=== PATIENT | female | born 1995 | race African-American/Black ===

== ENCOUNTER 2016-06-25 17:35 | Inpatient (IN) ==
[2016-06-25] MEDS ORDERED: ONDANSETRON 4 MG/2 ML VIAL IV PRN (18:04)
[2016-06-25] MEDS ORDERED: MEPERIDINE 50 MG/1 ML VIAL IV PRN (18:04)
[2016-06-25 18:26] LABS: Basophils % 0.1 % (0.0-0.8); Eosinophils % 0.2 % (0.00-10.9); Hematocrit 26.1 VOL% (35.7-47.0); Hemoglobin 8.6 GM/DL (12.0-16.0); Immature Granulocytes % 0.4 %; Immature Granulocytes Absolute 0.04 #; Lymphocytes # 1.3 10*3/uL (1.4-4.0); Lymphocytes % 11.8 % (21.3-54.2); Mean Corpuscular Hemoglobin 26 PG (27-34); Mean Corpuscular Volume 79.6 FL (87-102); Mean Platelet Volume 9.3 FL (9.6-12.0); Monocytes # 0.7 10*3/uL (0.11-0.8); Monocytes % 6.3 % (1.7-12.7); Neutrophils # 9.1 10*3/uL (1.4-7.4); Neutrophils % 81.2 % (38.7-73.9); Platelet Count 247 10*3/uL (130-400); Red Blood Count 3.28 10*6/uL (3.8-5.5); Red Cell Distribution Width 13.7 % (9.3-17.3); White Blood Count 11.2 10*3/uL (4.5-13.71)
[2016-06-25 18:52] LABS: Alanine Aminotransferase < 9 U/L (13-56); Alkaline Phosphatase 143 U/L (45-117); Aspartate Amino Transferase 13 U/L (0-37); Blood Urea Nitrogen 4 MG/DL (7-18); Calcium 8.8 MG/DL (8.5-10.1); Glucose 83 MG/DL (74-106); Osmolality,Calculated 276.3 MOS/KG (273-304); Potassium 3.6 MMOL/L (3.5-5.1); Sodium 141 MMOL/L (136-145); Total Protein 7.6 G/DL (6.4-8.3)
[2016-06-26] MEDS: BUTORPHANOL 2 MG/ML VIAL IV PRN ×2 (01:13→08:55)
[2016-06-26] MEDS: LACTATED RINGERS 1,000 ML IV SCH ×2 (01:13→08:57)
[2016-06-26] MEDS ORDERED: OXYTOCIN/LR 20 UNIT/1,000 ML BAG IV SCH (07:30)
[2016-06-26] MEDS ORDERED: fentaNYL 2 MCG/ROPIV 0.2% EPID 150 ML EPIDURAL SCH (12:39)
[2016-06-26] MEDS ORDERED: hydrOXYzine HCL 25 MG/1 ML VIAL IM PRN (12:39)
[2016-06-26] MEDS ORDERED: diphenhydrAMINE 50 MG/1 ML VIAL IV PRN ×2 (12:39)
[2016-06-26] MEDS ORDERED: ePHEDrine 50 MG/ML AMP IV PRN (12:39)
[2016-06-26] MEDS ORDERED: PROMETHAZINE 25 MG/1 ML VIAL IM ONE (12:39)
[2016-06-26] MEDS ORDERED: FAMOTIDINE 20 MG/2 ML VIAL IV ONE (12:39)
[2016-06-26] MEDS ORDERED: CITRIC ACID/SODIUM CITRATE 30 ML UDCUP PO ONE (12:39)
[2016-06-26] MEDS ORDERED: ONDANSETRON 4 MG/2 ML VIAL IV ONE (12:39)
--- NOTE | 2016-06-26 12:58 | OB/GYN History & Physical ---
History of Present Illness Chief complaint: Patient scheduled for induction of labor @ 39.1 weeks per patient request History of present illness: Ms. Rivera is a 20 year old female primigravida with an EDC 07/01/2016 per last menstrual period and consistent with a 9-5/7 week ultrasound she was steadily 9.1 weeks upon admission yesterday. She receives care [facility] with Ava Pabon CNM, ANTONINA-. Her history of physical is available. In up-to-date. Records are available and reviewed. Home Medications Medication Instructions Recorded Confirmed Type Vit No.124/Iron/FA 1 each PO DAILY MDD one tab 06/25/16 06/25/16 History [ Vitamin Tablet] Allergies Allergy/AdvReac Type Severity Reaction Status Date / Time No Known Allergies Allergy Verified 06/25/16 18:03 ROS unobtainable: due to endotracheal tube Medical,Surgical,& Family Hx - Medical History Medical History: noncontributory Other: History of: Miscellaneous Medical Problems (H/O Chlamydia ) - Surgical History Surgical History: noncontributory Neurologic Surgeries: Patient denies: Neurologic Surgery Reproductive Surgeries: Patient denies;: Genitourinary Surgery, Gynecologic Surgery - Family History Family History: noncontributory Family History: Denies;: Family Anesthesia Reaction, Family Cancer, Family Diabetes, Family Heart Disease, Family Hematology, Family Hypertension, Family Psychiatric Problems, Family Stroke, Additional Family History - Social History Smoking Status: Never smoker Frequency of Alcohol Use: None Type of Drug Use: None Marital Status: Single Lives With:: Parent Functional capacity: independent ambulation 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 - Constitutional Vitals: Vital Signs Temp Pulse Resp BP 06/26/16 04:00 97.5 F L 77 17 119/79 06/26/16 00:00 99.1 F 93 H 18 127/82 06/25/16 20:00 98.9 F 80 17 121/77 General appearance: normal weight - Antepartum / Post Antpartum Exam Cervix -Dilatation: 1cm Effacement: 50% Station: 0 Rupture: Intact Presentation: Vertex Heart Rate: 150s Manns Choice: Occassional/30-40 seconds/mild Breast: bilateral: normal Abdomen obstetrics: Present: bowel sounds normal Cervix: Present: normal Uterus exam: Present: enlarged (Gravid, soft) Anus/Rectum: Present: normal perianal skin - Head Head exam: Present: normal inspection - Respiratory Respiratory exam: Present: clear to auscultation bilaterally - Cardiovascular Cardiovascular exam: Present: regular rate and rhythm - GI/Abdominal GI/Abdominal exam: Present: normal bowel sounds - Extremities Exam Extremities exam: Present: normal inspection, normal capillary refill, full ROM - Back Exam Back exam: Present: normal inspection - Neurological Exam Neurological exam: Present: alert, oriented X3, normal gait - Psychiatric Psychiatric exam: Present: normal affect, normal mood - Skin Skin exam: Present: normal color, warm, dry Assessment and Plan (1) Elective induction of labor planned Status: Acute Current Visit: Yes Results - Labs CBC & BMP: 06/25/16 18:13 06/25/16 18:13
--- NOTE | 2016-06-26 13:06 | OB/GYN Progress Note ---
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 Requests pain medications O: FHTs @ 120s with spontaneous variability. No decelerations noted SVE 2 cm/ 80%/ 0 station UCs every min/ 40-50 sec/ mod AROM with amniohook- clear fluid noted IUPC inserted easily without difficulty with clear fluid noted A: IUP @ 39.2 wks, Category I FHR tracing, AROM clear fluid noted, IUPC inserted, Pitocin induction P: Continue with pitocin induction of labor, reposition for comfort. Questions answered to desired level of satisfaction. Prepare for epidural if desired. Exam HYBRID TESTER - Constitutional Vitals: Vital Signs Temp Pulse Resp BP 06/26/16 04:00 97.5 F L 77 17 119/79 06/26/16 00:00 99.1 F 93 H 18 127/82 06/25/16 20:00 98.9 F 80 17 121/77 Results - Labs CBC & BMP: 06/25/16 18:13 06/25/16 18:13 Labs: Laboratory Tests 06/25/16 06/25/16 06/25/16 18:13 18:13 18:13 WBC 11.2 RBC 3.28 L Hgb 8.6 L Hct 26.1 L MCV 79.6 L MCH 26 L MCHC 33.0 RDW 13.7 Plt Count 247 MPV 9.3 L Neut % (Auto) 81.2 H Lymph % (Auto) 11.8 L [place] % (Auto) 6.3 Eos % (Auto) 0.2 Baso % (Auto) 0.1 Neut # (Auto) 9.1 H Lymph # (Auto) 1.3 L [place] # (Auto) 0.7 Eos # (Auto) 0.0 Baso # (Auto) 0.0 Immature Gran % 0.4 Nucleated RBC % 0.0 Immature Gran # 0.04 Nucleated RBCs # 0.00 Sodium 141 Potassium 3.6 Chloride 106 Carbon Dioxide 24 Anion Gap 14.6 BUN 4 L Creatinine 0.80 GFR Calculation 134 BUN/Creatinine Ratio 5.00 L Glucose 83 Calculated Osmolality 276.3 Calcium 8.8 Total Bilirubin 0.60 AST 13 ALT < 9 L Alkaline Phosphatase 143 H Total Protein 7.6 Albumin 3.0 L Globulin 4.6 H Albumin/Globulin Ratio 0.6 L Blood Type A POSITIVE Antibody Screen Negative
--- NOTE | 2016-06-26 13:14 | OB/GYN Progress Note ---
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 I want an epidural!" O: FHTs @ 120s with spontaneous accelerations no decelerations noted UCs Every 1-2 min/ 40-50 sec/ 50-55 mmHg with resting tone @ 20-25 mmHg SVE 5-6/ 90%/ 0 station A: IUP @ 39.2 wks, Active Labor, Category I FHR tracing, Anemia P: Prepare for epidural. Reposition for comfort. 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
[2016-06-26] MEDS ORDERED: LIDOCAINE 1% 50 ML VIAL ONE (13:56)
[2016-06-26] MEDS ORDERED: METHYLERGONOVINE 0.2 MG/1 ML AMP ONE (14:12)
[2016-06-26] MEDS ORDERED: miSOPROStol 200 MCG TABLET ONE (14:26)
--- NOTE | 2016-06-26 14:51 | Operative Note ---
Date of procedure: 06/26/16 Pre-op diagnosis: IUP @ 39.1 wks, Induction of labor at term Post-op diagnosis: other (, Mild Post Hemorrhage) Procedure: Received in dorsal lithotomy position, draped and prepped. At 1356, spontaneous delivery of head in VIOLETTE position with midline episiotomy. Anterior then posterior shoulder delivered easily without difficulty. Female placed on mother's abdomen. Mouth and nose bulb suctioned with clear secretions noted. Cord doubly clamped and allowed to be cut by father of baby. Female attended per nursery nurse. At 1358, spontaneous delivery of placenta via Jo with 3 vessel cord noted, normal cord insertion, mild calcifications present. Hemostasis maintained with fundal massage and Pitocin 20 units in 1000cc of LR. Perineum inspected- bilateral lateral lacerations, periurethral lacerations, and midline episiotomy noted. Periurethral laceration repaired with Lidocaine 1% plain and 3-0 Chromic. Right labial and Midline episiotomy infiltrated with Lidocaine 1% plain and repaired with 3-0 Chromic suture. Slow continuous vaginal bleeding noted- Bleeding decreased with with uterine sweep and removal of clots. In and out cath performed- 250 cc of clear yellow urine noted. Bimanual compression massage performed. Methergine 0.2 mg given SQ and Cytotec 800 mcg given rectally. Bleeding improved. Cervix inspected- no lacerations or bleeding noted. Female with Apgars 8,9 and mother stable at this time. Mother is presently . Mild hemorrhage noted and controlled. Anesthesia: local, epidural Surgeon / Physician: Ava Pabon Estimated blood loss: other (300 cc) Specimens: other (placenta to pathology- mild hemorrhage) Condition: stable Disposition: floor Results - Labs CBC & BMP: 06/25/16 18:13 06/25/16 18:13 Discharge Plan - Discharge Medications No Action Vit No.124/Iron/FA [ Vitamin Tablet] 1 each PO DAILY MDD one tab - Follow Up or Referral - Forms/Instructions
[2016-06-26] MEDS ORDERED: WITCH HAZEL PADS 100/JAR TOP PRN (14:52)
[2016-06-26] MEDS ORDERED: BENZOCAINE 20%/MENTHOL 0.5% SPRAY 56 GM CAN TOP PRN (14:52)
[2016-06-26] MEDS ORDERED: BISACODYL 10 MG SUPP RECTAL PRN (14:52)
[2016-06-26] MEDS ORDERED: MEASLES/MUMPS/RUBELLA VACCINE 0.5 ML VIAL SUBCUT ONE (14:52)
[2016-06-26] MEDS ORDERED: RHO(D) IMMUNE GLOBULIN 300 MCG SYRINGE IM ONE (14:52)
[2016-06-26] MEDS ORDERED: IBUPROFEN 800 MG TABLET PO PRN (14:52)
[2016-06-26] MEDS ORDERED: HYDROCORTISONE 2.5% RECTAL CREAM 30 GM TUBE TOP PRN (14:52)
[2016-06-26] MEDS ORDERED: oxyCODONE/ACETAMINOPHEN 5-325 MG TABLET PO PRN ×2 (14:52)
[2016-06-26] MEDS ORDERED: LANOLIN 50% CREAM 0.3 OZ TUBE TOP PRN (14:52)
[2016-06-26] MEDS ORDERED: OXYTOCIN/LR 20 UNIT/1,000 ML BAG IV ONE (14:52)
[2016-06-26] MEDS ORDERED: ACETAMINOPHEN 325 MG TABLET PO PRN (14:52)
[2016-06-26] MEDS ORDERED: DIPH/TET/ACEL PERT BOOSTER VACCINE 0.5 ML VIAL IM ONE (14:52)
[2016-06-26 20:11] LABS: Hematocrit 24.1 VOL% (35.7-47.0)
[2016-06-26] MEDS: FERROUS SULFATE 325 MG TABLET PO SCH (21:39)
[2016-06-26] MEDS: DOCUSATE SODIUM 100 MG CAPSULE PO SCH (21:40)
[2016-06-27 05:39] LABS: Basophils % 0.1 % (0.0-0.8); Eosinophils % 0.1 % (0.00-10.9); Hemoglobin 7.1 GM/DL (12.0-16.0); Immature Granulocytes % 0.5 %; Immature Granulocytes Absolute 0.07 #; Lymphocytes # 1.9 10*3/uL (1.4-4.0); Lymphocytes % 13.3 % (21.3-54.2); Mean Corpuscular HGB Conc 33.8 GM/DL (32-36); Mean Corpuscular Hemoglobin 27 PG (27-34); Mean Corpuscular Volume 78.7 FL (87-102); Mean Platelet Volume 9.7 FL (9.6-12.0); Monocytes # 1.2 10*3/uL (0.11-0.8); Monocytes % 8.3 % (1.7-12.7); Neutrophils # 11.1 10*3/uL (1.4-7.4); Neutrophils % 77.7 % (38.7-73.9); Platelet Count 199 10*3/uL (130-400); Red Blood Count 2.67 10*6/uL (3.8-5.5); White Blood Count 14.3 10*3/uL (4.5-13.71)
[2016-06-27] MEDS: MULTIVITAMIN (PRENATAL) TABLET PO SCH (08:50)
[2016-06-27] MEDS: DOCUSATE SODIUM 100 MG CAPSULE PO SCH ×2 (08:50→20:50)
[2016-06-27] MEDS: FERROUS SULFATE 325 MG TABLET PO SCH ×3 (08:50→20:50)
--- NOTE | 2016-06-27 13:51 | OB/GYN Progress Note ---
Assessment and Plan (1) Elective induction of labor planned Status: Resolved Current Visit: Yes (2) Artificial rupture of membranes antepartum Status: Resolved Current Visit: Yes (3) (normal spontaneous vaginal delivery) Status: Acute Current Visit: Yes (4) Anemia Status: Acute Current Visit: Yes Qualifiers: Anemia type: iron deficiency [employer] - PN: Subj Interval history: S: Breast feeding. Denies any problems. Would like control but is unsure of type of control she would like. Denies any chest pain, shortness of breath, difficulty breathing, or any other issues. A: PPD 1, bottle Feeding, Anemia P: Consulted Dr. Brennan secondary to anemia- states continue iron supplementation. Will DC home tomorrow if stable. Exam [employer] - Constitutional Vitals: Vital Signs Temp Pulse Resp BP Pulse Ox 06/27/16 11:37 98.2 F 88 16 130/70 98 06/27/16 07:14 97.2 F L 98 H 18 155/90 97 06/27/16 02:00 20 06/26/16 22:35 98.6 F 85 18 142/82 98 06/26/16 20:00 99.4 F 98 H 17 138/86 General appearance: no acute distress - Antepartum / Post Post Exam Breast: bilateral: normal Abdomen obstetrics: Present: bowel sounds normal Vagina: Present: normal moisture Uterus exam: Present: enlarged (firm, midline, 2 below umbilicus) Adnexa: bilateral: normal Anus/Rectum: Present: normal perianal skin - Head Head exam: Present: normal inspection - ENT ENT exam: Present: normal exam - Neck Neck exam: Present: normal inspection - Respiratory Respiratory exam: Present: clear to auscultation bilaterally - Breast Menstruation: other (scant rubra noted on peripad) - Cardiovascular Cardiovascular exam: Present: regular rate and rhythm Results - Labs CBC & BMP: 06/27/16 05:16 06/25/16 18:13 Lab Results: I have reviewed the past 24 hour labs Labs: Laboratory Tests 06/25/16 06/25/16 06/25/16 18:13 18:13 18:13 WBC 11.2 RBC 3.28 L Hgb 8.6 L Hct 26.1 L MCV 79.6 L MCH 26 L MCHC 33.0 RDW 13.7 Plt Count 247 MPV 9.3 L Neut % (Auto) 81.2 H Lymph % (Auto) 11.8 L [place] % (Auto) 6.3 Eos % (Auto) 0.2 Baso % (Auto) 0.1 Neut # (Auto) 9.1 H Lymph # (Auto) 1.3 L [place] # (Auto) 0.7 Eos # (Auto) 0.0 Baso # (Auto) 0.0 Immature Gran % 0.4 Nucleated RBC % 0.0 Immature Gran # 0.04 Nucleated RBCs # 0.00 Sodium 141 Potassium 3.6 Chloride 106 Carbon Dioxide 24 Anion Gap 14.6 BUN 4 L Creatinine 0.80 GFR Calculation 134 BUN/Creatinine Ratio 5.00 L Glucose 83 Calculated Osmolality 276.3 Calcium 8.8 Total Bilirubin 0.60 AST 13 ALT < 9 L Alkaline Phosphatase 143 H Total Protein 7.6 Albumin 3.0 L Globulin 4.6 H Albumin/Globulin Ratio 0.6 L Blood Type A POSITIVE Antibody Screen Negative 06/26/16 06/27/16 20:04 05:16 WBC 14.3 H RBC 2.67 L Hgb 8.0 L 7.1 L Hct 24.1 L 21.0 L MCV 78.7 L MCH 27 MCHC 33.8 RDW 14.0 Plt Count 199 MPV 9.7 Neut % (Auto) 77.7 H Lymph % (Auto) 13.3 L [place] % (Auto) 8.3 Eos % (Auto) 0.1 Baso % (Auto) 0.1 Neut # (Auto) 11.1 H Lymph # (Auto) 1.9 [place] # (Auto) 1.2 H Eos # (Auto) 0.0 Baso # (Auto) 0.0 Immature Gran % 0.5 Nucleated RBC % 0.0 Immature Gran # 0.07 Nucleated RBCs # 0.00 Sodium Potassium Chloride Carbon Dioxide Anion Gap BUN Creatinine GFR Calculation BUN/Creatinine Ratio Glucose Calculated Osmolality Calcium Total Bilirubin AST ALT Alkaline Phosphatase Total Protein Albumin Globulin Albumin/Globulin Ratio Blood Type Antibody Screen
[2016-06-28 07:28] VITALS: BP 125/70
[2016-06-28] MEDS: MULTIVITAMIN (PRENATAL) TABLET PO SCH (09:30)
[2016-06-28] MEDS: DOCUSATE SODIUM 100 MG CAPSULE PO SCH (09:30)
--- NOTE | 2016-06-28 11:17 | Pathology Report from [facility] ---
ACCESSION # : [id number] PATIENT NAME : Christina Owen ORDERING DR : Kay Tee MD CLINICAL HX: IUP 39 weeks, vaginal mild post hemorrhage POST-OP DX: Same SPECIMEN INFO: Placenta GROSS DESCRIPTION: The speicmen is received fresh labeled "CHRISTINA OWEN/ PLACENTA" weighs 471 gm placenta measuring 17.5 x 16.0 x 2.8 cm. The membrane are burden and translucent. The umbilical cord measures 26.0 c, containing three vessel and is eccentrically inserted. The surface is blue mcnamara with a few small areas of subchondral fibrin seen. The maternal displays mildly disrupted cotyledons with a few calcifications noted. Sectioning revels no gross abnormalities. Section submitted, (A) membranes and cord, (B) maternal surfaces. DIAGNOSIS FOR CHRISTINA OWEN: PLACENTA: Trivascular umbilical cord. Unremarkable membranes. Term placenta with subchorionic fibrin deposition and focal dystrophic calcification. SERVICE DATE: 06/27/2016 REPORT DATE: 06/28/2016 PATHOLOGIST: Jyoti Aly III, M.D. MTDD
--- NOTE | 2016-06-28 11:31 | Discharge Summary ---
Hospital Course - Hospital Course Hospital Course: Alexis diamond is a 20-year-old now 1 para 1 that they presented for Cytotec induction which she later received Pitocin. Labor progressed without difficulty and she proceeded to deliver vaginally a female with Apgars 8 , 9. She is breast-feeding and is stable. During the course of the delivery she did have a midline episiotomy that was repair along with bilateral labial lacerations and appear urethral laceration with right labial laceration be repaired. She did have hemorrhage at that time as well. She has been essentially stable with occasional elevated blood pressures but overall remained normotensive. She is breast-feeding without difficulty she stated she desires control but she is unsure of the type of control she will like at this time. She is being discharged home with routine instructions and she will follow up with me at the clinic in one week. Diagnosis - Discharge Diagnosis (1) Elective induction of labor planned Status: Resolved (2) Artificial rupture of membranes antepartum Status: Resolved (3) (normal spontaneous vaginal delivery) Status: Acute (4) Anemia Status: Acute Specialty Discharge - Follow Up or Referrals - Discharge Medications No Action Vit No.124/Iron/FA [ Vitamin Tablet] 1 each PO DAILY MDD one tab Discharge Plan - Discharge Data Disposition: Disch To Home/Self Care Condition at Discharge: Stable Discharge Diet: advance to your usual diet Activity: resume usual activities as tolerated Hygiene: may shower Weight Bearing at Discharge: full weight bearing Driving: not for (2 weeks) Contact your physician if you experience:: fever over 101, Difficulty voiding, Redness or swelling, Nausea/Vomiting, Shortness of breath, Bleeding, pain uncontrolled by pain medications - Discharge Medications New Ferrous Sulfate Tab [Feosol Original Tab] 325 mg PO TID #90 tablet Ibuprofen Tab [Motrin Tab] 800 mg PO Q8H PRN #90 tablet PRN Reason: Pain No Action Vit No.124/Iron/FA [ Vitamin Tablet] 1 each PO DAILY MDD one tab - Follow Up or Referral - Forms/Instructions Instructions: Depression (GEN), Perineal Care (DC), Vaginal Delivery (DC), Bleeding (DC) Exam - Constitutional Vitals: Period Temp Pulse Resp BP Sys/Cast Pulse Ox Last 24 Hr 97.6 F-98.5 F 83-106 16-24 125-150/69-90 97-99 General appearance: no acute distress - Head Head exam: Present: normal inspection - Eye Eye exam: Present: EOMI - ENT ENT exam: Present: normal exam - Neck Neck exam: Present: normal inspection - Respiratory Respiratory exam: Present: clear to auscultation bilaterally - Cardiovascular Cardiovascular exam: Present: regular rate and rhythm - GI/Abdominal GI/Abdominal exam: Present: normal bowel sounds, other (uterus firm, midline, 3 below umbilicus. Perineum intact, healing well, no edema. Scant rubra noted on perineal pad) - Extremities Exam Extremities exam: Present: normal inspection, normal capillary refill, full ROM - Back Exam Back exam: Present: normal inspection - Neurological Exam Neurological exam: Present: alert, oriented X3, normal gait - Psychiatric Psychiatric exam: Present: normal affect, normal mood - Skin Skin exam: Present: normal color, warm, dry Discharge Results Procedures and tests throughout hospitalization: Laboratory Tests 06/25/16 06/25/16 06/25/16 18:13 18:13 18:13 WBC 11.2 RBC 3.28 L Hgb 8.6 L Hct 26.1 L MCV 79.6 L MCH 26 L MCHC 33.0 RDW 13.7 Plt Count 247 MPV 9.3 L Neut % (Auto) 81.2 H Lymph % (Auto) 11.8 L [place] % (Auto) 6.3 Eos % (Auto) 0.2 Baso % (Auto) 0.1 Neut # (Auto) 9.1 H Lymph # (Auto) 1.3 L [place] # (Auto) 0.7 Eos # (Auto) 0.0 Baso # (Auto) 0.0 Immature Gran % 0.4 Nucleated RBC % 0.0 Immature Gran # 0.04 Nucleated RBCs # 0.00 Sodium 141 Potassium 3.6 Chloride 106 Carbon Dioxide 24 Anion Gap 14.6 BUN 4 L Creatinine 0.80 GFR Calculation 134 BUN/Creatinine Ratio 5.00 L Glucose 83 Calculated Osmolality 276.3 Calcium 8.8 Total Bilirubin 0.60 AST 13 ALT < 9 L Alkaline Phosphatase 143 H Total Protein 7.6 Albumin 3.0 L Globulin 4.6 H Albumin/Globulin Ratio 0.6 L Blood Type A POSITIVE Antibody Screen Negative 06/26/16 06/27/16 20:04 05:16 WBC 14.3 H RBC 2.67 L Hgb 8.0 L 7.1 L Hct 24.1 L 21.0 L MCV 78.7 L MCH 27 MCHC 33.8 RDW 14.0 Plt Count 199 MPV 9.7 Neut % (Auto) 77.7 H Lymph % (Auto) 13.3 L [place] % (Auto) 8.3 Eos % (Auto) 0.1 Baso % (Auto) 0.1 Neut # (Auto) 11.1 H Lymph # (Auto) 1.9 [place] # (Auto) 1.2 H Eos # (Auto) 0.0 Baso # (Auto) 0.0 Immature Gran % 0.5 Nucleated RBC % 0.0 Immature Gran # 0.07 Nucleated RBCs # 0.00 Sodium Potassium Chloride Carbon Dioxide Anion Gap BUN Creatinine GFR Calculation BUN/Creatinine Ratio Glucose Calculated Osmolality Calcium Total Bilirubin AST ALT Alkaline Phosphatase Total Protein Albumin Globulin Albumin/Globulin Ratio Blood Type Antibody Screen DS: Provider Date of admission: 06/25/16 17:35 Primary care physician: . No PCP Attending physician on admission: Kay Tee, Consults: 06/25/16 18:04 Consult to Anesthesiology [CONS] Routine Consulting Provider: Reason for Anesthesiology: Epidural Consult Comment: Epidural for pain managment 06/26/16 14:52 Consult to Account Underwriter [CONS] Routine Consult Account Underwriter: Breast Feeding Discharging clinician: MIGUELINA Escamilla
[2016-06-28] MEDS: FERROUS SULFATE 325 MG TABLET PO SCH (12:22)
== END 2016-06-28 13:05 | disposition home or self-care (01) | DRG 774 ==
LOC: N.LD 17:35 → N.OB 06-26 22:35
PROVIDERS: ADMIT Obstetrics & Gynecology; ATTEND Obstetrics & Gynecology

== ENCOUNTER 2017-06-21 11:04 | Inpatient (IN) ==
[2017-06-21] MEDS ORDERED: ONDANSETRON 4 MG/2 ML VIAL ONE (11:47)
[2017-06-21] MEDS ORDERED: miSOPROStol 200 MCG TABLET ONE (11:47)
[2017-06-21] MEDS ORDERED: BUTORPHANOL 2 MG/ML VIAL ONE (11:47)
[2017-06-21] MEDS ORDERED: OXYTOCIN/LR 20 UNIT/1,000 ML BAG IV ONE ×3 (11:47→18:17)
[2017-06-21] MEDS ORDERED: BUTORPHANOL 1 MG/ML VIAL IV PRN (11:49)
[2017-06-21] MEDS ORDERED: BUTORPHANOL 2 MG/ML VIAL IV PRN (11:49)
[2017-06-21] MEDS ORDERED: ONDANSETRON 4 MG/2 ML VIAL IV PRN (11:49)
[2017-06-21] MEDS ORDERED: LACTATED RINGERS 1,000 ML IV SCH (12:00)
[2017-06-21 12:14] LABS: Apearance,Urine CLEAR (Clear); Glucose,Urine (UA) Negative (Negative); Ketones,Urine Negative (Negative); Protein,Urine >=500 MG/DL; Urine Color Yellow (Yellow); Urine Specific Gravity 1.009 (1.001-1.035)
[2017-06-21 12:15] LABS: Bacteria,Urine Occasional /HPF (Few); Bilirubin,Urine Negative (Negative); Blood, Urine Negative (Negative); Mucus,Urine Occasional /LPF (Occasional); Nitrite,Urine Negative (Negative); RBC,Urine 1 /HPF (0-4); Squamous Epithelial Cell,Urine Occasional /HPF (0-10); Urine Urobilinogen < 2.0 EU/DL (0.2-1.0); WBC,Urine 4 /HPF (0-6)
[2017-06-21 12:30] LABS: Basophils % 0.3 % (0.0-0.8); Eosinophils % 0.3 % (0.00-10.9); Hematocrit 32.7 VOL% (35.7-47.0); Immature Granulocytes % 0.3 %; Immature Granulocytes Absolute 0.03 #; Lymphocytes # 2.5 10*3/uL (1.4-4.0); Lymphocytes % 25.2 % (21.3-54.2); Mean Corpuscular HGB Conc 33.6 GM/DL (32-36); Mean Corpuscular Hemoglobin 27 PG (27-34); Mean Corpuscular Volume 81.1 FL (87-102); Mean Platelet Volume 11.2 FL (9.6-12.0); Monocytes # 0.9 10*3/uL (0.11-0.8); Monocytes % 8.9 % (1.7-12.7); Neutrophils # 6.4 10*3/uL (1.4-7.4); Platelet Count 291 T/CUMM (130-400); Red Blood Count 4.03 MC/CUMM (3.8-5.5); Red Cell Distribution Width 15.7 % (9.3-17.3); White Blood Count 9.9 T/CUMM (4-12)
[2017-06-21 12:40] LABS: INR 0.9; PT Patient Result 9.4 SECS; Partial Thromboplastin Time 25.5 SECS (0-40)
[2017-06-21 12:41] LABS: Barbiturates Screen,Urine Negative (Negative); Benzodiazepines Screen,Urine Negative (Negative); Cannabinoid Screen,Urine Negative (Negative); Opiate Screen,Urine Negative (Negative); Phencyclidine Screen,Urine Negative (Negative)
[2017-06-21] MEDS ORDERED: WITCH HAZEL PADS 100/JAR TOP PRN (13:03)
[2017-06-21] MEDS ORDERED: IBUPROFEN 800 MG TABLET PO PRN (13:03)
[2017-06-21] MEDS ORDERED: DIPH/TET/ACEL PERT BOOSTER VACCINE 0.5 ML VIAL IM ONE (13:03)
[2017-06-21] MEDS ORDERED: BENZOCAINE 20%/MENTHOL 0.5% SPRAY 56 GM CAN TOP PRN (13:03)
[2017-06-21] MEDS ORDERED: LANOLIN 50% CREAM 0.3 OZ TUBE TOP PRN (13:03)
[2017-06-21] MEDS ORDERED: MEASLES/MUMPS/RUBELLA VACCINE 0.5 ML VIAL SUBCUT ONE (13:03)
[2017-06-21] MEDS ORDERED: oxyCODONE/ACETAMINOPHEN 5-325 MG TABLET PO PRN (13:03)
[2017-06-21] MEDS ORDERED: RHO(D) IMMUNE GLOBULIN 300 MCG SYRINGE IM ONE (13:03)
[2017-06-21] MEDS ORDERED: HYDROCORTISONE 2.5% RECTAL CREAM 30 GM TUBE TOP PRN (13:03)
[2017-06-21] MEDS ORDERED: BISACODYL 10 MG SUPP RECTAL PRN (13:03)
[2017-06-21] MEDS ORDERED: ACETAMINOPHEN 325 MG TABLET PO PRN (13:03)
[2017-06-21 13:07] LABS: Albumin 2.7 G/DL (3.4-5.0); Bilirubin,Total 0.5 MG/DL (0.2-1.0); Calcium 8.8 MG/DL (8.5-10.1); Osmolality,Calculated 268.8 MOS/KG (273-304); Potassium 4.5 MMOL/L (3.5-5.1); Total Protein 7.7 G/DL (6.4-8.3); Uric Acid 5.7 MG/DL (2.6-6.0)
[2017-06-21] MEDS ORDERED: hydrALAZINE 20 MG/1 ML VIAL IV ONE (14:18)
[2017-06-21] MEDS: LABETALOL 200 MG TABLET PO SCH ×2 (14:32→20:41)
[2017-06-21] MEDS: oxyCODONE/ACETAMINOPHEN 5-325 MG TABLET PO PRN (19:35)
[2017-06-21] MEDS: DOCUSATE SODIUM 100 MG CAPSULE PO SCH (20:41)
[2017-06-22] MEDS: oxyCODONE/ACETAMINOPHEN 5-325 MG TABLET PO PRN (06:07)
[2017-06-22 06:58] LABS: Basophils % 0.3 % (0.0-0.8); Eosinophils # 0.1 10*3/uL (0.0-0.87); Eosinophils % 0.5 % (0.00-10.9); Hematocrit 27.9 VOL% (35.7-47.0); Hemoglobin 9.3 GM/DL (12.0-16.0); Immature Granulocytes % 0.3 %; Immature Granulocytes Absolute 0.03 #; Lymphocytes # 2.9 10*3/uL (1.4-4.0); Lymphocytes % 27.5 % (21.3-54.2); Mean Corpuscular HGB Conc 33.3 GM/DL (32-36); Mean Corpuscular Hemoglobin 27 PG (27-34); Mean Corpuscular Volume 81.1 FL (87-102); Mean Platelet Volume 10.6 FL (9.6-12.0); Monocytes # 0.9 10*3/uL (0.11-0.8); Monocytes % 8.2 % (1.7-12.7); Neutrophils # 6.6 10*3/uL (1.4-7.4); Neutrophils % 63.2 % (38.7-73.9); Platelet Count 230 T/CUMM (130-400); Red Blood Count 3.44 MC/CUMM (3.8-5.5); Red Cell Distribution Width 15.9 % (9.3-17.3); White Blood Count 10.4 T/CUMM (4-12)
[2017-06-22 10:07] VITALS: BP 132/82
[2017-06-22] MEDS ORDERED: NIFEdipine 10 MG CAPSULE PO ONE (11:06)
[2017-06-22] MEDS: LABETALOL 200 MG TABLET PO SCH (11:09)
[2017-06-22] MEDS: DOCUSATE SODIUM 100 MG CAPSULE PO SCH (11:10)
[2017-06-25 12:41] LABS: Toxoplasma IgG Value < 3 IU/mL
[2017-06-25 14:52] LABS: HSV Ab Screen IgM by EIA Negative (Negative)
== END 2017-06-22 12:40 | disposition home or self-care (01) | DRG 775 ==
LOC: N.LDOUT 11:04 → N.LD 11:07 → N.OB 11:49 → EDOUTPBED 11:49 → N.LD 12:00 → N.OB 15:44 → UNDODEPREF 06-24 13:35
PROVIDERS: ADMIT Obstetrics & Gynecology; ATTEND Obstetrics & Gynecology